=== PATIENT | female | born 1995 | race Caucasian/White ===

== ENCOUNTER 2017-11-12 17:46 | Emergency (ER) | payer OTHER, MEDICAID | END 2017-11-12 18:41 | disposition home or self-care (01) | LOC: FTE 18:41 | DX: J06.9 Acute upper respiratory infection, unspecified (principal) | CPT/HCPCS: 99283; Z7502 ==

== ENCOUNTER 2018-05-27 18:27 | Emergency (ER) | payer OTHER | END 2018-05-27 20:59 | disposition home or self-care (01) | LOC: FTE 18:27 | DX: R11.2 Nausea with vomiting, unspecified (principal) | CPT/HCPCS: 99283 ==